=== PATIENT | female | born 1960 | race Caucasian/White ===

== ENCOUNTER 2016-09-12 12:47 | Emergency (ER) | payer BC ==
[~2016-09-12 12:47] MED LIST: ACID CONTROL20 MG PO; BENZONATATE PO; CHANTEX; CHANTIX PO; DICLOFENAC PO; NAPROXEN375 MG PO; NORFLEX100 M1 PO; PROPRANOLOL HCL60 M1 PO; SIMVASTATIN20 MG PO; SOLU MEDROL IJ; VICODIN 5/1 TAB 5/50 PO; VICODIN 5/500 T1 TAB PO; ZITHROMAX PO
== END 2016-09-12 12:48 | disposition home or self-care (01) ==
LOC: SED 12:47
DX: J06.9 Acute upper respiratory infection, unspecified (principal); G43.909 Migraine, unspecified, not intractable, without status migrainosus; Z90.49 Acquired absence of other specified parts of digestive tract; F17.200 Nicotine dependence, unspecified, uncomplicated
CPT/HCPCS: 99282

== ENCOUNTER 2017-02-10 11:24 | Emergency (ER) | payer MEDICAID ==
[2017-02-10] MEDS ORDERED: NO MEDICATIONS (11:37)
[2017-02-10 12:06] LABS: MICRO INDICATED? YES; URINE APPEARANCE CLEAR; URINE BILIRUBIN NEG (NEG); URINE BLOOD TRACE-INTACT (NEG); URINE COLOR YELLOW; URINE GLUCOSE NEG (NORM); URINE KETONE NEG (NEG); URINE LEUKOCYTE ESTERASE TRACE (NEG); URINE NITRATE NEG (NEG); URINE PROTEIN NEG (NEG); URINE SOURCE CLEAN CATCH; URINE SPECIFIC GRAVITY 1.015 (1.003-1.035); URINE UROBILINOGEN 0.2 MG/DL (NORM)
[2017-02-10 12:09] LABS: CULTURE INDICATED? YES; URINE BACTERIA 1+ (NEG); URINE MUCUS PRESENT; URINE RBC 0-2 /[HPF] (0-2); URINE SQUAMOUS EPITHELIAL CELL FEW /[HPF]
== END 2017-02-10 12:52 | disposition home or self-care (01) ==
LOC: SED 11:24
PROVIDERS: Nurse Practitioner Family
DX: M54.5 Low back pain (principal); G89.29 Other chronic pain; G43.909 Migraine, unspecified, not intractable, without status migrainosus; Z88.0 Allergy status to penicillin
CPT/HCPCS: 81003; 87086; 96372; 99283; J1100